=== PATIENT | female | born 1955 ===

== ENCOUNTER 2018-08-15 22:41 | Emergency (ER) | payer SELFPAY ==
[2018-08-16] MEDS ORDERED: Ketorolac 60 MG/2 ML SDV IM ONE (00:23)
[2018-08-16] MEDS ORDERED: predniSONE 20 MG Tab PO ONE (00:24)
--- NOTE | 2018-08-16 00:27 | EDM.PDOC ---
ED HPI GENERAL MEDICAL PROBLEM - General Chief Complaint: General Stated Complaint: SWOLLEN IN HANDS Time Seen by Provider: 08/16/18 00:14 - History of Present Illness INITIAL COMMENTS - FREE TEXT/NARRATIVE: HISTORY AND PHYSICAL: History of present illness: The patient is a 62-year-old female with a known history of arthritis and has seen 2 different rheumatologists would not specifically given it a particular title but who has had flareups in bigger joints in the past but has started a new job and over the last 1 week has noticed intermittent swelling of joints in her hands bilaterally. She says that she is using her hands much more than she ever has and has been having intermittent swelling and pain which is similar to her other flareups in her bigger joints but she has never had problems with her hands. She says in the past prednisone has worked and she ran out of diclofenac. She has no other systemic complaints Review of systems: As per history of present illness and below otherwise all systems reviewed and negative. Past medical history: As per history of present illness and as reviewed below otherwise noncontributory. Surgical history: As per history of present illness and as reviewed below otherwise noncontributory. Social history: No reported history of drug or alcohol abuse. Family history: As per history of present illness and as reviewed below otherwise noncontributory. Physical exam: HEENT: Atraumatic, normocephalic, negative for conjunctival pallor or scleral icterus, mucous membranes moist, throat clear, neck supple, nontender, trachea midline. Lungs: Clear to auscultation, breath sounds equal bilaterally, chest nontender. Heart: S1S2, regular rate and rhythm no overt murmurs Abdomen: Soft, nondistended, nontender. NABS Pelvis: Stable nontender. Genitourinary: Deferred. Rectal: Deferred. Extremities: Atraumatic, negative for cords or calf pain. Neurovascular unremarkable. Bilateral hands have scattered inflammation and swelling of joints to MCPs as well as the calyces. There is no gross erythema appreciated or joint effusions and patient has full range of motion. There is some warmth to some of these joints. Neuro: Awake, alert, oriented. Cranial nerves II through XII unremarkable. Cerebellum unremarkable. Motor and sensory unremarkable throughout. Exam nonfocal. Diagnostics: [] Therapeutics: Toradol IM prednisone Impression: Arthritis flareup with history of same Definitive disposition and diagnosis as appropriate pending reevaluation and review of above. Bilateral Hand Pain Score (Numeric/FACES): 7 - Related Data Allergies Allergy/AdvReac Type Severity Reaction Status Date / Time Sulfa (Sulfonamide Allergy Hives Verified 08/15/18 23:29 Antibiotics) Home Meds: Home Meds Cyclobenzaprine [Flexeril] 10 mg PO BEDTIME 08/15/18 [History] FLUoxetine HCl [Fluoxetine HCl] 40 mg PO BEDTIME 08/15/18 [History] Folic Acid 1 mg PO BEDTIME 08/15/18 [History] Hydrocodone/Acetaminophen [Hydrocodon-Acetaminophen 5-325] 1 tab PO TID [History] Methocarbamol 1 tab PO TID 08/15/18 [History] Methotrexate 15 mg PO Q7D 08/15/18 [History] traMADol [Ultram] 50 mg PO BEDTIME 08/15/18 [History] Past Medical History HEENT History: Reports: Impaired Vision Cardiovascular History: Reports: None Respiratory History: Reports: None Genitourinary History: Reports: None [employer] History: Reports: Musculoskeletal History: Reports: Arthritis, Osteoarthritis, RA Neurological History: Reports: None Psychiatric History: Reports: Depression Endocrine/Metabolic History: Reports: None Hematologic History: Reports: None Immunologic History: Reports: None Oncologic (Cancer) History: Reports: None Dermatologic History: Reports: None - Infectious Disease History Infectious Disease History: Reports: Chicken Pox, Measles, Mononucleosis, Shingles - Past Surgical History Head Surgeries/Procedures: Reports: None GI Surgical History: Reports: Appendectomy Other Female Surgeries/Procedures: exploritory lapriscopes Social & Family History - Tobacco Use Smoking Status *Q: Never Smoker - Caffeine Use Caffeine Use: Reports: Energy Drinks - Recreational Drug Use Recreational Drug Use: Yes Drug Use in Last 12 Months: Yes Recreational Drug Type: Reports: Marijuana/Hashish Recreational Drug Use Frequency: Daily ED ROS GENERAL - Review of Systems Review Of Systems: ROS reveals no pertinent complaints other than HPI. ED EXAM, GENERAL - Physical Exam Exam: See Below (See dictation) Course - Vital Signs Last Recorded V/S: Last Vital Signs Temp 35.2 C L 08/15/18 23:27 Pulse 81 08/15/18 23:27 Resp BP 172/82 H 08/15/18 23:27 Pulse Ox 97 08/15/18 23:27 - Orders/Labs/Meds Orders: Active Orders 24 hr Category Date Time Status Ketorolac [Toradol] Med 08/16/18 00:23 Once 60 mg IM ONETIME ONE predniSONE Med 08/16/18 00:24 Once 20 mg PO ONETIME ONE Medication Orders Ketorolac Tromethamine (Toradol) 60 mg IM ONETIME ONE Stop: 08/16/18 00:24 Meds: Medications Generic Name Dose Route Start Last Admin Trade Name Leonie PRHolden Reason Stop Dose Admin Ketorolac Tromethamine 60 mg 08/16/18 00:23 Toradol IM 08/16/18 00:24 ONETIME ONE Departure - Departure Time of Disposition: 00:26 Disposition: Home, Self-Care 01 Condition: Good Clinical Impression: Arthritis - Discharge Information Referrals: PCP,None [Primary Care Provider] - Additional Instructions: The following information is given to patients seen in the emergency department who are being discharged to home. This information is to outline your options for follow-up care. We provide all patients seen in our emergency department with a follow-up referral. The need for follow-up, as well as the timing and circumstances, are variable depending upon the specifics of your emergency department visit. If you don't have a primary care physician on staff, we will provide you with a referral. We always advise you to contact your personal physician following an emergency department visit to inform them of the circumstance of the visit and for follow-up with them and/or the need for any referrals to a consulting specialist. The emergency department will also refer you to a specialist when appropriate. This referral assures that you have the opportunity for followup care with a specialist. All of these measure are taken in an effort to provide you with optimal care, which includes your followup. Under all circumstances we always encourage you to contact your private physician who remains a resource for coordinating your care. When calling for followup care, please make the office aware that this follow-up is from your recent emergency room visit. If for any reason you are refused follow-up, please contact the [facility] emergency department at and ask to speak to the emergency department charge nurse. [facility] Primary care- Internal [place] [address] Ice to areas of swelling after your work and use medications as prescribed, diclofenac and prednisone, starting later today, Friday. Please follow-up with your housekeeper caregiver or one of our providers in the clinic and return to ER as needed and as discussed. - My Orders Last 24 Hours: My Active Orders 08/16/18 00:23 Ketorolac [Toradol] 60 mg IM ONETIME ONE 08/16/18 00:24 predniSONE 20 mg PO ONETIME ONE - Assessment/Plan Last 24 Hours: My Active Orders 08/16/18 00:23 Ketorolac [Toradol] 60 mg IM ONETIME ONE 08/16/18 00:24 predniSONE 20 mg PO ONETIME ONE
== END 2018-08-16 01:28 | disposition home or self-care (01) ==
LOC: MW.ED 22:41
DX: M19.042 Primary osteoarthritis, left hand (principal); M19.041 Primary osteoarthritis, right hand; Z88.2 Allergy status to sulfonamides; Z79.899 Other long term (current) drug therapy
CPT/HCPCS: 96372; 99283; A9270; J1885